=== PATIENT | female | born 1990 | race Asian ===

== ENCOUNTER → 2018-02-10 09:20 | Outpatient (CLI) | payer OTHER, SELFPAY ==
[2018-02-10 10:46] LABS: Anion Gap 8 (5-15); BUN 12 mg/dL (7-18); BUN/Creat Ratio 19.2 RATIO (10-20); Chloride 106 mmol/L (98-107); Cholesterol 171 mg/dL (200); Creatinine, Serum 0.63 mg/dL (0.55-1.02); EST Glomerular Filtration Rate 120 mL/min (>60); Est Glom Filt Rate - Afr Amer 145 mL/min (>60); Glucose 85 mg/dL (74-106); High Density Lipoprotein 59 mg/dL; Sodium Level 141 mmol/L (136-145); Thyroid Stim Hormone (TSH) 1.48 uIU/mL (0.358-3.74); Triglycerides 114 mg/dL; Very Low Density Lipoprotein 23 mg/dL (5-40)
[2018-02-10 10:53] LABS: Vitamin D,25 Hydroxy 22.6 ng/mL (29.95-100.01)
== END ==
PROVIDERS: Family Provider Family Medicine; PCP Family Medicine; Visit Provider Family Medicine
DX: Z00.00 Encounter for general adult medical examination without abnormal findings (principal)
CPT/HCPCS: 36415; 80048; 80061; 82306; 84443

== ENCOUNTER 2019-02-01 05:55 | Inpatient (IN) | payer OTHER, SELFPAY ==
[2019-02-01] VITALS (8 sets, daily range): BP systolic 117–132; BP diastolic 65–79; PULSE 117–125; RESP 19–21; TEMP 36.1–37.4; O2SAT 96–99; BMI 31.5
--- NOTE | 2019-02-01 | PLAC_PTH ---
PATIENT: ALEXIA ORTIZ LOC: [facility] U#:[id number] AGE/SX: 28/F ROOM: [facility] RE02/01/[address]: Dr. Aida Crane, MDDOB: 1990 BED: 1 DIS: 02/04/2019 SPEC #: [id number] RECD: 02/01/19 23:18 STATUS: LILLIAM MONSE #: [id number] MAME: 02/01/19 00:[address]: Cami Morris DEPT: SURGICAL PATHOLOGY RECD BY: Anat Jones ENTERED: 02/02/19 09:06 SP TYPE: PLACENTA OTHR DR: MD Dr. Ephraim Veloz MD Tissues: Placenta, NOS Procedures: Surgery Specimen Level V HEADER OPERATION: Primary section PRE-OP DIAGNOSIS: Labor and delivery TISSUE SUBMITTED: Placenta MICROSCOPIC DIAGNOSIS Sparks placenta (866 grams) Umbilical cord - trivascular with acute funisitis. Placental membranes - acute chorioamnionitis and acute deciduitis. Placental disc with organizing hemorrhage and focal chorangiosis. AM:pamela 02/07/19 MICROSCOPIC DESCRIPTION Slides are reviewed. GROSS DESCRIPTION SPECIMEN: PLACENTA / CLINICAL INFORMATION: A. Weight: 4.256 kg B. Gestational Age: 39 weeks C. Sex: Female PLACENTAL WEIGHT (POST FIXATION): 866 gm PLACENTAL DIMENSIONS: 24 x 19 x 4 cm PLACENTAL SHAPE: Usual ovoid PLACENTAL WEIGHT FOR GESTATIONAL AGE: Over 10-99th percentile MEMBRANES - Present A. Insertion: Marginal B. Site of rupture from edge: 6 cm from edge of placental disc C. Color of membrane: Valladares-pacheco D. Abnormalities: None UMBILICAL CORD - Present A. Color: Valladares-pacheco B. Insertion: Marginal C. Length: 43 cm D. Diameter: 1.5 cm E. Number of vessels: Three F. Abnormalities: None PLACENTAL DISC - Present A. Color of surface: Valladares-pacheco B. surface abnormalities: None C. Maternal cotyledons: Intact with minimal tears D. Attached retro placental clot: No clot E. Cut surface: Dark red and spongy F. Lesions: A valladares pacheco lesion 1.5 cm in greatest dimension G. Separate clot: Absent SECTIONS SUBMITTED: 1. Membrane roll 2. Cord, maternal end 3. Cord, end 4. Placental disc, and maternal surfaces 5. Placental disc, and maternal surfaces 6. Placental disc, and maternal surfaces and lesion SJ:pamela 02/05/19 TC: 2 CPT: 55790
[2019-02-01] MEDS: Lactated Ringers 1,000 ML 50 ML IV ×4 (06:45→17:36)
[2019-02-01] MEDS: Oxytocin 30 units/NS 500 ml 30 UNITS/500 ML IV.SOLN IV (07:35)
[2019-02-01 07:48] LABS: Absolute Lymphocyte Count 1.34 X10^3/uL (0.83-4.51); Absolute Neutrophil Count 6.3 X10^3/uL (2.0-7.7); Basophil# 0.02 X10^3/uL; Basophil% 0.2 % (0-1); Eosinophil# 0.14 X10^3/uL; Eosinophils% 1.6 % (0-5); Hematocrit 37.6 % (37-47); Hemoglobin 12.8 g/dL (12.0-15.0); Lymphocyte # 1.34 X10^3/ul (4.0); Lymphocyte % 15.7 % (19-41); Mean Platelet Vol. 11.7 fl (6.2-12.0); Monocyte# 0.65 X10^3/uL; Monocyte% 7.6 % (0-10); NRBC Flagged by Analyzer 0 % (0-5); Neutrophil # 6.33 X10^3/uL (2.7-7.7); Neutrophil % 74.4 % (47-70); Platelet Count 178 K/mm3 (150-450); RBC Distribution Width SD 47.7 fl (35.1-43.9); White Blood Count 8.5 K/mm3 (4.4-11.0)
--- NOTE | 2019-02-01 08:06 | PCM.HP.OB ---
- Problem List (1) Premature rupture of membranes Status: Acute (2) Congenital anomaly of upper limb Status: Acute (3) Anemia affecting Status: Acute History Date of Admission: 02/01/19 Final LEE: 02/02/19 Final LEE Source: LMP Gestational age: 39 Weeks and 6 Days History of this : This is a 28 year-old, G [1], P [000], at 39w5d of gestational age. Presented to L&D with complaint of PROM at 430am. No contractions prior to ROM. No vaginal bleeding. Allergies No Known Allergies Allergy (Verified 02/01/19 07:07) Home Medications: Home Medications Ferrous Sulfate [Iron] 325 mg PO BID 02/01/19 Emily 500 mg PO DAILY 02/01/19 L.acidoph,Paracasei, B.lactis [Probiotic] 1 ea PO DAILY 02/01/19 Metronidazole 500 mg VAGINAL BID 02/01/19 Gummies 1 PO DAILY 02/01/19 Smoking Status: Never smoker Alcohol: None Heart Tracin, moderate variability, accels, no decels TOCO: every 2-3 minutes, mild, lasting 60 seconds. Pitocin at 2 mu's History Past Pregnancies: Past Pregnancies Delivery Date Name GA/Weeks Outcome Route Weight Infant Gender Labor Length Anesthesia Delivery Location Provider FOB Labs: 1hr GCT elevated, 3 hr GTT normal GBS negative RPR negative Rubella Immune HBsAG negative HIV negative O positive CF negative Urine tox screen negative GC/CT negative Expected Infant Delivery Method: Spontaneous Vaginal Review of Systems Constitutional: Denies: Chills, Fever, Weight Change HEENT: Denies: Head Aches, Sinus Congestion, Sinus Drainage Physical Exam General: Alert, Oriented x3, No apparent distress HEENT: Atraumatic, Normocephalic Cardiovascular: Regular rate, Regular Rhythm, No murmurs Lungs: Clear to auscultation, Normal air movement, No rhonchi, No wheeze Abdomen: Gravid Extremities:: No edema Neurological: Deep Tendon Reflexes 2+/4 and Symmetrical. Negative for: Clonus J[employer] FR[employer] END WEB DEVELOPER: Normal external genitalia Estimated gestational size: Appropriate for gestational size Presentation: Cephalic Assessment/Plan All Active Problems Premature rupture of membranes (Acute) Congenital anomaly of upper limb (Acute) Anemia affecting (Acute) This is a 28 year-old, G [1], P [0], at 39w5d gestational age for premature rupture of membranes Category 1 FHT P: 1) Admit to L&D Routine labs 2) Pitocin for augmentation 3) Continuous monitoring 4) Planning unmedicated . May have nitrous, IV Nubain, or epidural upon request 5) notified of admission and patient status
--- NOTE | 2019-02-01 13:18 | PCM.PN.OB ---
Patient Problems: Active and Suspected Problems Premature rupture of membranes (Acute) Congenital anomaly of upper limb (Acute) Anemia affecting (Acute) Subjective: Breathing through contractions. at bedside. Asking for epidural. Objective: FHT 130, no decels, category 1 IA Contractions every 2-3minutes strong - Physical Exam Weight: 172 lb 6.424 oz Body Mass Index (BMI) 31.5 Laboratory Tests Past 24 Hrs 02/01/19 02/01/19 06:45 06:45 WBC 8.5 RBC 4.00 L Hgb 12.8 Hct 37.6 MCV 94.0 MCH 32.0 MCHC 34.0 RDW Std Deviation 47.7 H RDW Coeff of Todd 14.0 Plt Count 178 MPV 11.7 Immature Gran % (Auto) 0.500 Neut % (Auto) 74.4 H Lymph % (Auto) 15.7 L [place] % (Auto) 7.6 Eos % (Auto) 1.6 Baso % (Auto) 0.2 Absolute Neuts (auto) 6.3 Absolute Lymphs (auto) 1.34 Absolute Nucleated RBC 0.00 Nucleated RBC % 0 Blood Type O POSITIVE Antibody Screen NEGATIVE Medical Necessity - Tobacco Use Smoking Status: Never smoker Assessment/Plan All Active Problems Premature rupture of membranes (Acute) Congenital anomaly of upper limb (Acute) Anemia affecting (Acute) A:Active labor Category 1 FHT P: 1) Requesting epidural 2) OP position, positional changes
[2019-02-01] MEDS: fentaNYL-bupivacaine (epidural) 100 ML BAG EPIDURAL ×2 (14:17→18:09)
[2019-02-01] MEDS: Acetaminophen 325 MG Tablet PO ×2 (16:05→18:30)
--- NOTE | 2019-02-01 17:58 | PCM.PN.OB ---
Patient Problems: Active and Suspected Problems Premature rupture of membranes (Acute) Congenital anomaly of upper limb (Acute) Anemia affecting (Acute) Maternal fever during labor (Acute) Objective: FHT 170, minimal variability, no accels, no decels, Category 1 TOCO: every 2-3 minutes, strong Cervix 8cm/80%/-1 - Physical Exam Weight: 172 lb 6.424 oz Body Mass Index (BMI) 31.5 Laboratory Tests Past 24 Hrs 02/01/19 02/01/19 06:45 06:45 WBC 8.5 RBC 4.00 L Hgb 12.8 Hct 37.6 MCV 94.0 MCH 32.0 MCHC 34.0 RDW Std Deviation 47.7 H RDW Coeff of Todd 14.0 Plt Count 178 MPV 11.7 Immature Gran % (Auto) 0.500 Neut % (Auto) 74.4 H Lymph % (Auto) 15.7 L [place] % (Auto) 7.6 Eos % (Auto) 1.6 Baso % (Auto) 0.2 Absolute Neuts (auto) 6.3 Absolute Lymphs (auto) 1.34 Absolute Nucleated RBC 0.00 Nucleated RBC % 0 Blood Type O POSITIVE Antibody Screen NEGATIVE Medical Necessity - Tobacco Use Smoking Status: Never smoker Assessment/Plan All Active Problems Premature rupture of membranes (Acute) Congenital anomaly of upper limb (Acute) Anemia affecting (Acute) Maternal fever during labor (Acute) A:Active labor, progressing Category 2 FHT Suspected Triple I P: 1) Cervical progression, continue with expectant management 2) Ampicillin 2 grams IV q6h and Gentamicin 5mg/kg pharmacy to dose IV once. 3) Tylenol for maternal fever 4) notified about patient status.
--- NOTE | 2019-02-01 18:53 | PN.OBGYN_ITS ---
Patient Problems: Active and Suspected Problems Premature rupture of membranes (Acute) Congenital anomaly of upper limb (Acute) Anemia affecting (Acute) Maternal fever during labor (Acute) Subjective: Resting on right side in bed with peanut ball. at bedside. Objective: FHT 170, minimal variability, no accels, no decels, Category 2 TOCO: every 2-3 minutes, strong Cervix 9cm/90%/0 AR[place]IO - Physical Exam Weight: 172 lb 6.424 oz Body Mass Index (BMI) 31.5 Laboratory Tests Past 24 Hrs 02/01/19 02/01/19 06:45 06:45 WBC 8.5 RBC 4.00 L Hgb 12.8 Hct 37.6 MCV 94.0 MCH 32.0 MCHC 34.0 RDW Std Deviation 47.7 H RDW Coeff of Todd 14.0 Plt Count 178 MPV 11.7 Immature Gran % (Auto) 0.500 Neut % (Auto) 74.4 H Lymph % (Auto) 15.7 L [place] % (Auto) 7.6 Eos % (Auto) 1.6 Baso % (Auto) 0.2 Absolute Neuts (auto) 6.3 Absolute Lymphs (auto) 1.34 Absolute Nucleated RBC 0.00 Nucleated RBC % 0 Blood Type O POSITIVE Antibody Screen NEGATIVE Medical Necessity - Tobacco Use Smoking Status: Never smoker Assessment/Plan All Active Problems Premature rupture of membranes (Acute) Congenital anomaly of upper limb (Acute) Anemia affecting (Acute) Maternal fever during labor (Acute) A:Active labor progressing Category 2 FHT Suspected Triple I P: 1) Continue with current labor management. Reviewed with patient stable at this time and cervical progression, to continue with labor. 2) Antibiotics for suspected triple I. 3) present and observed patient and tracing. Agrees with continued plan.
--- NOTE | 2019-02-01 20:18 | PN.OBGYN_ITS ---
Patient Problems: Active and Suspected Problems Maternal fever during labor (Acute) Premature rupture of membranes (Acute) Congenital anomaly of upper limb (Acute) Anemia affecting (Acute) Subjective: Laying on left side in bed. at bedside. Objective: FHR 165, minimal variability, no accels, early decelerations, Category 2 TOCO: every 2 minutes, strong Cervix 8-9cm/90%/0. - Physical Exam Weight: 172 lb 6.424 oz Body Mass Index (BMI) 31.5 Intake and Output for Last 24 Hours 01/30/19 01/31/19 02/01/19 23:59 23:59 23:59 Intake Total 2600 / 2600 Output Total 550 / 550 Balance 2049 / 2049 Laboratory Tests Past 24 Hrs 02/01/19 02/01/19 06:45 06:45 WBC 8.5 RBC 4.00 L Hgb 12.8 Hct 37.6 MCV 94.0 MCH 32.0 MCHC 34.0 RDW Std Deviation 47.7 H RDW Coeff of Todd 14.0 Plt Count 178 MPV 11.7 Immature Gran % (Auto) 0.500 Neut % (Auto) 74.4 H Lymph % (Auto) 15.7 L [place] % (Auto) 7.6 Eos % (Auto) 1.6 Baso % (Auto) 0.2 Absolute Neuts (auto) 6.3 Absolute Lymphs (auto) 1.34 Absolute Nucleated RBC 0.00 Nucleated RBC % 0 Blood Type O POSITIVE Antibody Screen NEGATIVE Medical Necessity - Tobacco Use Smoking Status: Never smoker Assessment/Plan All Active Problems Maternal fever during labor (Acute) Premature rupture of membranes (Acute) Congenital anomaly of upper limb (Acute) Anemia affecting (Acute) A:Failure to progress Suspected Triple I Maternal Fever Category 2 FHT P: 1) Discussed with patient cervical exam and 8-9cm and no further progression. Maternal fever present and tachycardia with no accelerations. Discussed remote from delivery and recommendation for section. Reviewed r/b/a of continued labor. Patient and agree with plan for section. notified of patient status and coming to hospital. 2) Clindamycin 900mg IVPB. Ampicillin at 1744 and Gentamicin given at 1830. 3) OR team called for section
[2019-02-01] MEDS: CHLORHEXIDINE GLUC 2% CLOTH 1 EACH TOWELETTE TOPICAL (20:25)
[2019-02-01] MEDS: Sodium Citrate/Citric Acid 30 ML UDC PO (20:28)
[2019-02-01] MEDS: Ondansetron 4 MG/2 ML Vial IV (20:50)
[2019-02-01] MEDS: Oxytocin 30 units/NS 500 ml 30 UNITS/500 ML IV.SOLN 167 UNITS IV (21:04)
[2019-02-01] MEDS: Methylergonovine 0.2 MG/ML Ampul IM (21:07)
[2019-02-01] MEDS: Carboprost Tromethamine 250 MCG/ML Ampul IM (21:14)
[2019-02-01] MEDS: Ketorolac 30 MG/ML Syringe IV (21:31)
--- NOTE | 2019-02-01 21:41 | OP.PCM_ITS ---
Delivery Classification: NATE Final LEE: 02/02/19 Final LEE Source: US <20 weeks Gestational age: 39 Weeks and 6 Days Indications for : - - suspected triple I, maternal fever, protracted active phase of labor, thick MSF, persistent category 2 FHTS despite rescusictative measures remote from delivery, mild atony without hemorrhage Description of Procedure: The patient progressed to 5 cm normally, and she had a very protracted course between 6 and 8 cm. She then changed to 9 cm. However, she had a persistent fever and persistent category 2 heart tracing despite resuscitative julianna sures. She remained at 9 cm for over an hour, and with the persistent category 2 heart tracing and the protracted active phase of labor, and the maternal fever, decision was made to proceed with section. Patient and her 's questions were answered and they desire to proceed. The patient was taken to the operating room. She was prepped and draped in the dorsal supine position with a leftward tilt. A Pfannenstiel skin incision was made approximately 2 cm above the symphysis pubis and carried through to underlying layer fascia with the scalpel. The fascia was incised incised in the midline and extended laterally with the Ji scissors. The fascia was dissected off the rectus muscles with blunt and sharp dissection. The rectus muscles were in the midline and the peritoneum was entered bluntly. The peritoneal incision was stretched and the bladder blade was placed. The uterine incision was made in a low transverse fashion with the scalpel and extended superiorly and inferiorly with blunt dissection. After making the hysterotomy incision, large amounts of thick meconium-stained fluid were noted. Care was taken to elevate the head without flexing the neck. The head was brought to the incision in the flexed position and delivered without difficulty once it was unengaged from the pelvis. The remainder of the was delivered with gentle traction and fundal pressure in the standard fashion. The mouth and nares were bulb suctioned. The cord was clamped and cut as the was stimulated. Cord clamping was delayed. The was handed off to the waiting nursing staff. The placenta was delivered with fundal massage and gentle traction in the standard fashion. There was some moderate atony, that did not respond initially to IV Pitocin and fundal massage. The uterus was exteriorized and cleared of all clots and debris. The uterine incision was closed with #1 Vicryl in a running locked fashion. A second layer of the same suture was used in an imbricating fashion. The patient was given a dose of IM Methergine. Fundal massage was continued as I closed the uterus and there was still some atony. There is an extension down the right side of the cervix that was oversewn with an 0 Vicryl [id number] suture. Some sinuses in the midline of the incision were oversewn with a vertical mattress suture. The incision was examined and was found to be hemostatic. There is still some mild atony and a dose of Hemabate was given intramuscular directly into the uterine fundus. Because of the extension, the posterior aspect of the uterus was examined and there were no hematomas or defects noted. The uterus was placed back into the peritoneal cavity. There was some mild oozing along the peritoneal edges that was Bovie cauterized. Some fibrillar was placed in the corners of the uterine incision and some Paulie over it. Hemostasis was then noted.The rectus muscles were examined and any bleeding was Bovie cauterized. The parietal peritoneum and rectus muscles were closed en bloc with an 0 Vicryl running suture. The surgical teams outer gloves were then changed. The rectus fascia was examined and any bleeding was Bovie cauterized and the rectus fascia was closed with 1 Vicryl suture in a running standard fashion. The subcutaneous tissue was examining and any bleeding was Bovie cauterized. The subcutaneous tissue was reapproximated with 3-0 Vicryl suture. The skin was closed in a subcuticular fashion by the TELEPHONE INSTALLER with me present in the labor and delivery suite. I performed the remainder of the procedure with assistance. Because of the maternal fever, I will continue the antibiotics for at least 24 hours postoperatively. If at that time her white blood cell count is trending down and she is afebrile, will discontinue the antibiotics. All sponge, lap, and needle counts were correct. The patient was taken to her room for recovery in a stable condition. Amniotic Membrane Rupture Type: Spontaneous Amniotic Fluid Description: Clear, Thick meconium Placenta Disposition: Sent to Pathology Drain: Todd to straight drain Cord Entanglement: None Cord Vessel Description: 3 Vessels Esitmated Blood Loss (ml): 1000 Infant Gender: Female (1 minute): 8 (5 minute): 9 Delayed cord clamping: Yes Pre-op Antibiotic Given: - - amp/gent/clinda Complications: None - Admit VTE Documentation VTE Present on Admission: No VTE Mechan Device Prophylaxis: SCD's VTE Pharm Prophylaxis ordered?: Yes
[2019-02-01] MEDS: Lactated Ringers 1,000 ML 100 ML IV (22:00)
[2019-02-01] MEDS: Cefazolin 1 GM/50 ML BAG IV (23:15)
[2019-02-02] VITALS (20 sets, daily range): BP systolic 98–132; BP diastolic 51–79; PULSE 98–126; RESP 16–21; TEMP 36.2–37.3; O2SAT 96–99
[2019-02-02 01:10] LABS: Pathology Specimen OB SEE PATHOLOGY REPORT
[2019-02-02] MEDS: metroNIDAZOLE 500 MG/100 ML BAG 100 MG IV ×3 (02:24→18:23)
[2019-02-02] MEDS: Ketorolac 30 MG/ML Syringe IV ×4 (03:16→21:01)
[2019-02-02] MEDS: 0.9% Saline Lock 10 ML Syringe IV ×3 (03:17→18:29)
[2019-02-02] MEDS: Lactated Ringers 1,000 ML 100 ML IV ×2 (05:03→12:24)
[2019-02-02 06:41] LABS: Hematocrit 29.2 % (37-47); Mean Corp Hgb Conc 34.2 g/dL (32-36); Mean Corpuscular Hgb 32.5 pg (27.0-32.0); Mean Corpuscular Volume 94.8 fL (81-99); Mean Platelet Vol. 10.6 fl (6.2-12.0); Platelet Count 141 K/mm3 (150-450); RBC Distribution Width CV 14.1 % (11.6-14.6); Red Blood Count 3.08 M/mm3 (4.2-5.4); White Blood Count 19.3 K/mm3 (4.4-11.0)
--- NOTE | 2019-02-02 07:48 | PCM.PN.OB ---
Patient Problems: Active and Suspected Problems Maternal fever during labor (Acute) Premature rupture of membranes (Acute) Congenital anomaly of upper limb (Acute) Anemia affecting (Acute) Subjective: Pain controlled. - Physical Exam General: Alert, Oriented x3 Abdomen: Soft, Non Tender, Non-Distended - ff mid & below umb; bandage - c/d/i Extremities: No Calf Tenderness Vital Signs Temp Pulse Resp BP Pulse Ox 97.8 F 111 H 18 100/52 L 97 02/02/19 06:15 02/02/19 07:15 02/02/19 07:15 02/02/19 06:15 02/02/19 07:15 Oxygen Delivery Method Room Air Weight: 172 lb 6.424 oz Body Mass Index (BMI) 31.5 Intake and Output for Last 24 Hours 01/31/19 02/01/19 02/02/19 23:59 23:59 23:59 Intake Total 5100 / 5100 3216 / 3216 Output Total 1150 / 1150 275 / 275 Balance 3950 / 3950 2941 / 2941 Laboratory Tests Past 24 Hrs 02/01/19 02/01/19 02/02/19 06:45 06:45 06:25 WBC 8.5 19.3 H RBC 4.00 L 3.08 L Hgb 12.8 10.0 L Hct 37.6 29.2 L MCV 94.0 94.8 MCH 32.0 32.5 H MCHC 34.0 34.2 RDW Std Deviation 47.7 H 49.0 H RDW Coeff of Todd 14.0 14.1 Plt Count 178 141 L MPV 11.7 10.6 Immature Gran % (Auto) 0.500 Neut % (Auto) 74.4 H Lymph % (Auto) 15.7 L [place] % (Auto) 7.6 Eos % (Auto) 1.6 Baso % (Auto) 0.2 Absolute Neuts (auto) 6.3 Absolute Lymphs (auto) 1.34 Absolute Nucleated RBC 0.00 Nucleated RBC % 0 Blood Type O POSITIVE Antibody Screen NEGATIVE Medical Necessity - Tobacco Use Smoking Status: Never smoker Assessment/Plan All Active Problems Maternal fever during labor (Acute) Premature rupture of membranes (Acute) Congenital anomaly of upper limb (Acute) Anemia affecting (Acute) POD#1 KESIHA - faby, will monitor UOP as has been low. S/p IV bolus & now patient with increased PO intake. GI - ADAT. ID - AF, continue antibiotics x 24 hours post-op. Heme - HDS.
[2019-02-02] MEDS: Acetaminophen 500 MG Tablet 1000 MG PO ×2 (07:56→23:31)
[2019-02-02] MEDS: Cefazolin 1 GM/50 ML BAG IV ×3 (07:57→21:04)
[2019-02-02] MEDS: Senna/Docusate Sodium 1 Tablet PO ×2 (10:25→21:06)
[2019-02-02] MEDS: Enoxaparin 40 MG/0.4 ML Syringe SC (21:39)
[2019-02-03 03:05] VITALS: BP 97/46; PULSE 89; RESP 16; TEMP 37
[2019-02-03 05:53] LABS: Absolute Lymphocyte Count 1.08 X10^3/uL (0.83-4.51); Absolute Neutrophil Count 17.8 X10^3/uL (2.0-7.7); Basophil# 0.03 X10^3/uL; Basophil% 0.1 % (0-1); Eosinophil# 0.06 X10^3/uL; Eosinophils% 0.3 % (0-5); Hematocrit 26.1 % (37-47); Hemoglobin 8.9 g/dL (12.0-15.0); Lymphocyte # 1.08 X10^3/ul (4.0); Lymphocyte % 5.4 % (19-41); Mean Corp Hgb Conc 34.1 g/dL (32-36); Mean Corpuscular Hgb 32.6 pg (27.0-32.0); Mean Corpuscular Volume 95.6 fL (81-99); Mean Platelet Vol. 10.1 fl (6.2-12.0); Monocyte# 0.71 X10^3/uL; Monocyte% 3.5 % (0-10); NRBC Flagged by Analyzer 0 % (0-5); Neutrophil # 17.83 X10^3/uL (2.7-7.7); POSITIVE MORPHOLOGY YES; Platelet Count 151 K/mm3 (150-450); RBC Distribution Width CV 14.2 % (11.6-14.6); RBC Distribution Width SD 49.1 fl (35.1-43.9); Red Blood Count 2.73 M/mm3 (4.2-5.4); White Blood Count 20.1 K/mm3 (4.4-11.0)
[2019-02-03 05:55] LABS: Differential Indicated SCAN CRITERIA MET
[2019-02-03 08:09] VITALS: BP 100/62; PULSE 80; RESP 16; TEMP 36.7; O2SAT 97
--- NOTE | 2019-02-03 09:02 | PN.OBGYN_ITS ---
Patient Problems: Active and Suspected Problems Maternal fever during labor (Acute) Premature rupture of membranes (Acute) Congenital anomaly of upper limb (Acute) Anemia affecting (Acute) Subjective: Pain controlled - Physical Exam General: Alert, Oriented x3 Abdomen: Soft, Non Tender, Non-Distended - ff mid & below umb; inc - bandage c/d/i Extremities: No Calf Tenderness Vital Signs Temp Pulse Resp BP Pulse Ox 98.0 F 80 16 100/62 97 02/03/19 08:09 02/03/19 08:09 02/03/19 08:09 02/03/19 08:09 02/03/19 08:09 Oxygen Delivery Method Room Air Weight: 172 lb 6.424 oz Body Mass Index (BMI) 31.5 Intake and Output for Last 24 Hours 02/01/19 02/02/19 02/03/19 23:59 23:59 23:59 Intake Total 5100 / 5100 5279 / 5279 Output Total 1150 / 1150 1675 / 1675 400 / 400 Balance 3950 / 3950 3604 / 3604 -400 / -400 Laboratory Tests Past 24 Hrs 02/03/19 05:40 WBC 20.1 H RBC 2.73 L Hgb 8.9 L Hct 26.1 L MCV 95.6 MCH 32.6 H MCHC 34.1 RDW Std Deviation 49.1 H RDW Coeff of Todd 14.2 Plt Count 151 MPV 10.1 Immature Gran % (Auto) 1.700 H Neut % (Auto) 89.0 H Lymph % (Auto) 5.4 L [place] % (Auto) 3.5 Eos % (Auto) 0.3 Baso % (Auto) 0.1 Absolute Neuts (auto) 17.8 H Absolute Lymphs (auto) 1.08 Absolute Nucleated RBC 0.00 Nucleated RBC % 0 Differential Comment Medical Necessity - Tobacco Use Smoking Status: Never smoker Assessment/Plan All Active Problems Maternal fever during labor (Acute) Premature rupture of membranes (Acute) Congenital anomaly of upper limb (Acute) Anemia affecting (Acute) POD#2 ID - AF s/p antibiotics. WBC 20 which is about stable from 19 yesterday. No signs infection but will monitor. Anemia - acute blood loss anemia. Continue iron. Routine care. Encouraged .
[2019-02-03] MEDS: Ferrous Sulfate 325 MG Tablet PO (12:10)
[2019-02-03 13:53] VITALS: BP 112/68; PULSE 104; RESP 16; TEMP 37; O2SAT 97
[2019-02-03] MEDS: Naproxen 250 MG Tablet PO ×2 (14:24→23:01)
[2019-02-03] MEDS: Acetaminophen 500 MG Tablet 1000 MG PO (17:16)
[2019-02-03 20:20] VITALS: BP 114/70; PULSE 102; RESP 16; TEMP 37.2; O2SAT 97
[2019-02-03] MEDS: Enoxaparin 40 MG/0.4 ML Syringe SC (23:03)
[2019-02-04] MEDS: Acetaminophen 500 MG Tablet 1000 MG PO (01:50)
[2019-02-04 01:51] VITALS: BP 116/72; PULSE 86; RESP 15; TEMP 36.8; O2SAT 97
[2019-02-04 07:45] VITALS: BP 117/75; PULSE 80; RESP 16; TEMP 37.6
--- NOTE | 2019-02-04 08:42 | PCM.PN.OB ---
Patient Problems: Active and Suspected Problems Maternal fever during labor (Acute) Premature rupture of membranes (Acute) Congenital anomaly of upper limb (Acute) Anemia affecting (Acute) Subjective: Denies complaints - Physical Exam General: Alert, Oriented x3 Abdomen: Soft, Non Tender, Non-Distended - ff mid & below umb; inc - bandage c/d/i Extremities: No Calf Tenderness Vital Signs Temp Pulse Resp BP Pulse Ox 98.2 F 86 15 116/72 97 02/04/19 01:51 02/04/19 01:51 02/04/19 01:51 02/04/19 01:51 02/04/19 01:51 Oxygen Delivery Method Room Air Weight: 172 lb 6.424 oz Body Mass Index (BMI) 31.5 Intake and Output for Last 24 Hours 02/02/19 02/03/19 02/04/19 23:59 23:59 23:59 Intake Total 5279 / 5279 Output Total 1675 / 1675 400 / 400 Balance 3604 / 3604 -400 / -400 Medical Necessity - Tobacco Use Smoking Status: Never smoker Assessment/Plan All Active Problems Maternal fever during labor (Acute) Premature rupture of membranes (Acute) Congenital anomaly of upper limb (Acute) Anemia affecting (Acute) POD#3 D/c home
--- NOTE | 2019-02-04 08:43 | PCM.DC.SUM ---
Discharge Date and Diagnosis - Problem List Patient Problems: Active and Suspected Problems Maternal fever during labor (Acute) Premature rupture of membranes (Acute) Congenital anomaly of upper limb (Acute) Anemia affecting (Acute) Date of Admission: 02/01/19 Date of Discharge: 02/04/19 - Primary Discharge Diagnosis Active and Suspected Problems Maternal fever during labor (Acute) Premature rupture of membranes (Acute) Congenital anomaly of upper limb (Acute) Anemia affecting (Acute) Hospital Course and Treatment Summary of Care Provided: This is a 28 year-old, G [1], P [000], at 39w5d of gestational age. Presented to L&D with complaint of PROM. After augmentation with pitocin she proceeded to have a section - please see operative note for details. Hospital course: Heme - on iron for acute blood loss anemia. ID - s/p antibiotics for maternal fever in labor. consult during admission. Discharge home with prescriptions & f/u instructions. Patient Problems: Active and Suspected Problems Maternal fever during labor (Acute) Premature rupture of membranes (Acute) Congenital anomaly of upper limb (Acute) Anemia affecting (Acute) - Physical Exam Vital Signs Temp Pulse Resp BP Pulse Ox 98.2 F 86 15 116/72 97 02/04/19 01:51 02/04/19 01:51 02/04/19 01:51 02/04/19 01:51 02/04/19 01:51 Oxygen Delivery Method Room Air Weight: 172 lb 6.424 oz Body Mass Index (BMI) 31.5 Intake and Output for Last 24 Hours 02/02/19 02/03/19 02/04/19 23:59 23:59 23:59 Intake Total 5279 / 5279 Output Total 1675 / 1675 400 / 400 Balance 3604 / 3604 -400 / -400 Home Medications: Medications to take at Discharge Ferrous Sulfate [Iron] 325 mg PO BID 02/01/19 Emily 500 mg PO DAILY 02/01/19 L.acidoph,Paracasei, B.lactis [Probiotic] 1 ea PO DAILY 02/01/19 Metronidazole 500 mg VAGINAL BID 02/01/19 Gummies 1 PO DAILY 02/01/19 Acetaminophen [Tylenol] 1,000 mg PO Q8H PRN PRN tablet 02/04/19 Docusate Sodium [Colace] 100 mg PO DAILY #30 cap 02/04/19 Ferrous Sulfate 325 mg PO DAILY@1200 #30 tab 02/04/19 Naproxen [Naprosyn] 250 - 500 mg PO Q8H PRN PRN tablet 02/04/19 Oxycodone [Oxyir] 5 mg PO Q6H PRN PRN 2 Days #5 tab 02/04/19 Following Prescrptions Were Given to Patient: Docusate Sodium [Colace] 100 mg PO DAILY #30 cap Prescription Printed Ferrous Sulfate 325 mg PO DAILY@1200 #30 tab Prescription Printed Oxycodone [Oxyir] 5 mg PO Q6H PRN PRN 2 Days #5 tab PRN Reason: Mod-Severe Pain (-04/19) Prescription Printed Primary Care Physician: Ephraim Chowdary MD [Primary Care Provider] - Medical Necessity - Tobacco Use Smoking Status: Never smoker Meaningful Use Info Meaningful Use Diagnoses (Choose all that apply): None applicable
--- NOTE | 2019-02-04 08:48 | DCINST_ITS ---
Discharge Diet: No Restrictions Discharge Activity: May not drive while taking narcotic pain medications., May Shower May resume sexual activity in: 6 weeks Weight Bearing Status: Weight bearing as tolerated Call your doctor if your incision/area has: Continuous Slow Oozing, Sudden Increased Bleeding, Increased Pain/ Swelling, Increased Redness, Foul Smelling Discharge, Swelling at the incision site Cleanse incision/area with: Soap & Water Additional Instructions: If you experience any of the following, contact your healthcare provider. * Bleeding that soaks a pad every hour for 2 hours * Fever 100.4 or higher * Unrelieved incision or abdominal pain * Swelling, redness, discharge or bleeding from your incision or episiotomy site * Your incision begins to separate * Problems urinating (including inability to urinate or burning while urinating). * Visual changes * Severe headache * Flu-like symptoms * Pain or redness in one of both of your breasts * Pain, warmth, tenderness or swelling in your legs, especially the calf area * Frequent nausea and vomiting * Symptoms of depression or anxiety If you experience any of the following, call 911 or go to the nearest Emergency Room. * Chest pain * Problems breathing * Seizure activity * Partial or complete paralysis of a body part, slurred speech, weakness or drooping of the face, or a sudden inability to walk or hold your balance Allergies/Adverse Reactions: Allergies No Known Allergies Allergy (Verified 02/01/19 07:07) Medications to take at Discharge Ferrous Sulfate [Iron] 325 mg PO BID 02/01/19 Emily 500 mg PO DAILY 02/01/19 L.acidoph,Paracasei, B.lactis [Probiotic] 1 ea PO DAILY 02/01/19 Metronidazole 500 mg VAGINAL BID 02/01/19 Gummies 1 PO DAILY 02/01/19 Acetaminophen [Tylenol] 1,000 mg PO Q8H PRN PRN tablet 02/04/19 Docusate Sodium [Colace] 100 mg PO DAILY #30 cap 02/04/19 Ferrous Sulfate 325 mg PO DAILY@1200 #30 tab 02/04/19 Naproxen [Naprosyn] 250 - 500 mg PO Q8H PRN PRN tablet 02/04/19 Oxycodone [Oxyir] 5 mg PO Q6H PRN PRN 2 Days #5 tab 02/04/19 The following prescriptions were given: Docusate Sodium [Colace] 100 mg PO DAILY #30 cap Prescription Printed Ferrous Sulfate 325 mg PO DAILY@1200 #30 tab Prescription Printed Oxycodone [Oxyir] 5 mg PO Q6H PRN PRN 2 Days #5 tab PRN Reason: Mod-Severe Pain (4-04/19) Prescription Printed Follow-Up: Call to make an appointment with your doctor for an incision check in 1-2 weeks. You will also need a 6 week post- follow up appointment. Test results from this visit will be discussed in further detail at your follow- up appointment, if applicable. Primary Care Physician: Ephraim Chowdary MD [Primary Care Provider] -
[2019-02-04] MEDS: Ferrous Sulfate 325 MG Tablet PO (11:44)
[2019-02-04 14:00] VITALS: BP 119/74; PULSE 77; RESP 16; TEMP 37.1
--- NOTE | 2019-02-09 15:44 | NURSING ---
Follow up call done, mother did pass clot and this was discussed and mentioned for her to call her dr especially if there is any notice of increased bleeding. Denies any other problems or concerns at this time. Has worked with which she felt was very helpful and was satisfied with her care.
== END 2019-02-04 15:00 | disposition home or self-care (01) | DRG 787 ==
PROVIDERS: Obstetrics & Gynecology; Student in an Organized Health Care Education/Training Program; Admitting Provider Obstetrics & Gynecology; Family Provider Family Medicine; PCP Family Medicine; Referring Provider Obstetrics & Gynecology; Visit Provider Obstetrics & Gynecology
DX: O75.2 Pyrexia during labor, not elsewhere classified (principal); D62 Acute posthemorrhagic anemia; O42.02 Full-term premature rupture of membranes, onset of labor within 24 hours of rupture; O99.02 Anemia complicating childbirth; D64.9 Anemia, unspecified; O76 Abnormality in fetal heart rate and rhythm complicating labor and delivery; O77.0 Labor and delivery complicated by meconium in amniotic fluid; Z3A.39 39 weeks gestation of pregnancy; Z37.0 Single live birth; O62.2 Other uterine inertia; O90.81 Anemia of the puerperium
CPT/HCPCS: 59025; 59050; 85025; 85027; 86850; 86900; 88307; 99218; J7120; A4216; G0378; J2405; J3490

== ENCOUNTER → 2019-02-05 | Outpatient (CLI) | payer OTHER, SELFPAY ==
[2019-02-01 06:16] VITALS: BMI 31.5
== END | disposition home or self-care (01) ==
LOC: TELEHEALTH 02-06 11:27
PROVIDERS: Family Provider Family Medicine; PCP Family Medicine; Referring Provider Obstetrics & Gynecology; Visit Provider Obstetrics & Gynecology
DX: O92.79 Other disorders of lactation (principal)
CPT/HCPCS: 96152

== ENCOUNTER → 2019-04-15 13:58 | Outpatient (CLI) | payer OTHER, SELFPAY ==
[2019-02-01 06:16] VITALS: BMI 31.5
== END ==
PROVIDERS: Family Provider Family Medicine; PCP Family Medicine; Referring Provider Obstetrics & Gynecology; Visit Provider Obstetrics & Gynecology
DX: Z39.1 Encounter for care and examination of lactating mother (principal)
CPT/HCPCS: 96152

== ENCOUNTER → 2020-01-06 14:56 | Outpatient (CLI) | payer OTHER, SELFPAY ==
[2019-02-01 06:16] VITALS: BMI 31.5
== END ==
PROVIDERS: PCP Family Medicine; Referring Provider Obstetrics & Gynecology; Visit Provider Obstetrics & Gynecology
DX: R63.3 Feeding difficulties (principal)
CPT/HCPCS: 96158

== ENCOUNTER 2020-09-20 07:52 | Inpatient (IN) | payer OTHER, SELFPAY ==
[2019-02-01 06:16] VITALS: BMI 31.5
[2020-09-20] VITALS (40 sets, daily range): BP systolic 90–142; BP diastolic 46–81; PULSE 85–155; RESP 16; TEMP 36.4–37.5; O2SAT 82–99; BMI 31.3
[2020-09-20] MEDS: Lactated Ringers 500 ML 999 ML IV (08:00)
[2020-09-20 08:11] LABS: Absolute Lymphocyte Count 1.12 X10^3/uL (0.83-4.51); Absolute Neutrophil Count 12.6 X10^3/uL (2.0-7.7); Basophil# 0.03 X10^3/uL; Basophil% 0.2 % (0-1); Eosinophil# 0.21 X10^3/uL; Eosinophils% 1.4 % (0-5); Hematocrit 38.9 % (37-47); Hemoglobin 12.9 g/dL (12.0-15.0); Lymphocyte # 1.12 X10^3/ul (4.0); Lymphocyte % 7.6 % (19-41); Mean Corp Hgb Conc 33.2 g/dL (32-36); Mean Corpuscular Hgb 31.1 pg (27.0-32.0); Mean Corpuscular Volume 93.7 fL (81-99); Mean Platelet Vol. 10.1 fl (6.2-12.0); Monocyte# 0.67 X10^3/uL; Monocyte% 4.6 % (0-10); NRBC Flagged by Analyzer 0 % (0-5); Neutrophil # 12.55 X10^3/uL (2.7-7.7); Neutrophil % 85.7 % (47-70); Platelet Count 209 K/mm3 (150-450); RBC Distribution Width CV 13.2 % (11.6-14.6); RBC Distribution Width SD 44.9 fl (35.1-43.9); Red Blood Count 4.15 M/mm3 (4.2-5.4); White Blood Count 14.7 K/mm3 (4.4-11.0)
[2020-09-20] MEDS: fentaNYL-bupivacaine (epidural) 100 ML BAG EPIDURAL (08:34)
[2020-09-20] MEDS: Lactated Ringers 1,000 ML 50 ML IV (09:00)
--- NOTE | 2020-09-20 09:06 | PCM.HP.OB ---
- Problem List (1) 38 weeks gestation of Status: Acute (2) Active labor at term Status: Acute (3) History of delivery Status: Acute History Date of Admission: 09/20/20 Final LEE: 10/02/20 Final LEE Source: [place] <20 weeks Gestational age: 38 Weeks and 2 Days History of this : This is a 30 year-old, G 2, P 1001, at 38 weeks gestational age who presents in active labor. Having ctx's and is 8 cm dilated. Allergies No Known Allergies Allergy (Verified 02/01/19 07:07) Home Medications: Home Medications Emily 500 mg PO DAILY 02/01/19 Gummies 1 tab PO DAILY 02/01/19 Ferrous Sulfate 325 mg PO DAILY@1200 09/20/20 Smoking Status: Never smoker Number of Fetus(es): 1 NST - FHR Rate Baby A FHR Category:: Category I History Past Pregnancies: Past Pregnancies Delivery Date Name GA/ Weeks Outcome Route Wt Infant Sex Labor Length Anesthesia Delivery Location Provider FOB Labs: See [facility] record Expected Delivery Method: Physical Exam Vitals: Vital Signs Temp Pulse BP Pulse Ox 98.8 F 99 130/68 H 98 09/20/20 08:52 09/20/20 09:04 09/20/20 09:00 09/20/20 09:04 Assessment/Plan All Active Problems 38 weeks gestation of (Acute) Active labor at term (Acute) History of delivery (Acute) Maternal fever during labor (Acute) Premature rupture of membranes (Acute) Congenital anomaly of upper limb (Acute) Anemia affecting (Acute) This is a 30 year-old, G 2, P 1, at 38 weeks gestational age who presents in active labor. - Admit for routine intrapartum care - AROM performed for clear fluid - GBS negative - Epidural for pain control - Pelvis adequate and EFW expected to be < 4500 g - Anticipate vaginal delivery
[2020-09-20] MEDS: Oxytocin 30 units/NS 500 ml 30 UNITS/500 ML IV.SOLN 334 UNITS IV (10:50)
--- NOTE | 2020-09-20 11:05 | OP.PCM_ITS ---
Problem List (1) 38 weeks gestation of Status: Acute (2) Active labor at term Status: Acute (3) History of delivery Status: Acute (4) (vaginal after ) Status: Acute Report of Operation Date of Procedure: 09/20/20 Pre-Operative Diagnosis: 38 week gestation, history prior section, active labor at term Post-Operative Diagnosis: As above, Surgery/Procedure Performed:: Description of Surgical Findings:: Viable male in right occiput anterior position. Uterus intact. Normal- appearing placenta with a three-vessel cord. Type of Anesthesia:: Epidural Special Medications: None Specimen's removed: Placenta Drains: Todd Estimated Blood Loss (mL): 200 Description of Procedure: The patient was complete and pushing. Head of infant was delivered in left occiput anterior position followed by the anterior shoulder with gentle downward traction without any force or delay. Posterior shoulder and body of were delivered without any force or delay. The infant was delivered atraumatically placed on maternal abdomen. The cord was clamped and cut after a 60 sec delay. Cord blood was obtained. The placenta was delivered with fundal massage. The placenta was noted to be normal-appearing and intact with a three-vessel cord. The uterus was explored x1 and the incision was noted to be intact. A second-degree perineal laceration was repaired with 3-0 Vicryl in usual fashion. Fundus was firm and bleeding hemostatic. Needle and sponge counts were correct. Vaginal sweep was performed. Grafts/Implants Used: None - Complications None - Admit VTE Documentation VTE Present on Admission: No VTE Pharm Prophylaxis ordered?: No Vaginal Delivery Maternal Presentation: Active Labor Amniotic Membrane Rupture Type: Artificial Amniotic Fluid Description: Clear Type of Anesthesia: Epidural Presentation: Vertex Placental Delivery Description: Expressed Cord Vessel Description: 3 Vessels Cord Entanglement: None Drain: Todd to straight drain Infant A gender: Male (1 minute): 9 (5 minute): 9 Episiotomy Description: None Laceration: 2nd degree Medications given after delivery: IV Pitocin Complications: None
--- NOTE | 2020-09-20 15:41 | NURSING ---
heart rate of 155bpm incorrect, monitor reading but pulse ox not on patient finger. HR of 114 obtained and correct.
[2020-09-20] MEDS: Ibuprofen 600 MG Tablet PO (21:55)
[2020-09-21 03:30] VITALS: BP 103/57; PULSE 84; RESP 18; TEMP 36.4
[2020-09-21 08:44] VITALS: BP 96/45; PULSE 68; RESP 18; TEMP 36.1
--- NOTE | 2020-09-21 11:26 | PCM.PN.OB ---
Patient Problems: Active and Suspected Problems 38 weeks gestation of (Acute) Active labor at term (Acute) History of delivery (Acute) (vaginal after ) (Acute) Subjective: Patient is doing well. Pain well controlled. Ambulating voiding without difficulty. Tolerating regular diet without nausea or vomiting. Lochia normal. Breast-feeding without complaints. She denies lightheadedness, dizziness, chest pain, shortness of breath, leg pain. Some perineal discomfort. Desires to go home today. - Physical Exam Vitals/I&O's: Vital Signs Temp Pulse Resp BP Pulse Ox 97 F L 68 18 96/45 L 98 09/21/20 08:44 09/21/20 08:44 09/21/20 08:44 09/21/20 08:44 09/20/20 19:34 Oxygen Delivery Method Room Air Weight: 171 lb 3.2 oz Body Mass Index (BMI) 31.3 Intake and Output for Last 24 Hours 09/19/20 09/20/20 09/22/20 23:59 23:59 00:59 Intake Total 2991.67 / 2991.67 Output Total 1200 / 1200 Balance 1791.67 / 1791.67 General: Alert, No apparent distress Abdomen: Non-Distended Extremities: No edema Skin: No rashes Neurological: Neuro grossly intact Psych/Mental Status: Normal Affect, Appropriate Microbiology Past 72 Hours 09/20/20 08:00 Mucosa - Nose SARS-CoV-2 Antigen (Rapid) - Final Current Medications Acetaminophen (Acetaminophen 500 Mg Tablet) 1,000 mg PO Q8H PRN PRN PRN Reason: Pain Score 1-3 Bisacodyl (Bisacodyl 10 Mg Suppository) 10 mg RC UD PRN PRN Reason: If no BM Dibucaine (Dibucaine 30 Gm Tube) 1 applic TOPICAL TID PRN PRN; Protocol PRN Reason: Discomfort Hydrocortisone (Hydrocortisone 2.5% Crm) 1 applic TOPICAL TID PRN PRN; Protocol PRN Reason: Discomfort Ibuprofen (Ibuprofen 600 Mg Tablet) 600 mg PO Q6H PRN PRN PRN Reason: Pain Score 1-3 Last Admin: 09/20/20 21:55 Dose: 600 mg Documented by: Methylergonovine Maleate (Methylergonovine 0.2 Mg/Ml Ampul) 0.2 mg IM X1 PRN PRN Reason: Excess bleeding/uterine atony Ondansetron HCl (Ondansetron 4 Mg/2 Ml Vial) 4 mg IV Q4H PRN PRN PRN Reason: Nausea Senna/Docusate Sodium (Senna/Docusate Sodium 1 Tablet) 1 - 2 tablet PO DAILY PRN PRN PRN Reason: Constipation Simethicone (Simethicone 80 Mg Tablet) 80 mg PO PCHS PRN PRN Reason: Indigestion/Stomach pain Sodium Chloride (0.9% Saline Lock 10 Ml Syringe) 5 - 15 ml IV UD PRN PRN Reason: SALINE FLUSH Medical Necessity - Tobacco Use Smoking Status: Never smoker Assessment/Plan All Active Problems 38 weeks gestation of (Acute) Active labor at term (Acute) History of delivery (Acute) (vaginal after ) (Acute) Maternal fever during labor (Acute) Premature rupture of membranes (Acute) Congenital anomaly of upper limb (Acute) Anemia affecting (Acute) Is day 1 from a vaginal after prior . She is doing well. Breast-feeding. Desires to go home today. Discharge instructions reviewed.
--- NOTE | 2020-09-21 11:28 | DCINST_ITS ---
Discharge Diet: No Restrictions Discharge Activity: May Shower May resume sexual activity in: 6 weeks Ice area for (Minutes): 15 Weight Bearing Status: Weight bearing as tolerated Call your doctor if you observe: Fever of 101 or Higher, Inability to urinate, Inability to have a bowel movement, Using more than one pad per hour, Shortness of breath, Dizziness, Fainting spells, Swelling in the ankles, Chest pain, Increased palpitations (irregular heartbeat), Calf discomfort, Uncontrolled pain Cleanse incision/area with: Soap & Water Additional Instructions: If you experience any of the following, contact your healthcare provider. * Bleeding that soaks a pad every hour for 2 hours * Fever 100.4 or higher * Unrelieved incision or abdominal pain * Swelling, redness, discharge or bleeding from your incision or episiotomy site * Your incision begins to separate * Problems urinating (including inability to urinate or burning while urinating). * Visual changes * Severe headache * Flu-like symptoms * Pain or redness in one of both of your breasts * Pain, warmth, tenderness or swelling in your legs, especially the calf area * Frequent nausea and vomiting * Symptoms of depression or anxiety If you experience any of the following, call 911 or go to the nearest Emergency Room. * Chest pain * Problems breathing * Seizure activity * Partial or complete paralysis of a body part, slurred speech, weakness or drooping of the face, or a sudden inability to walk or hold your balance Allergies/Adverse Reactions: Allergies No Known Allergies Allergy (Verified 02/01/19 07:07) Medications to take at Discharge Emily 500 mg PO DAILY 02/01/19 Gummies 1 tab PO DAILY 02/01/19 Ferrous Sulfate 325 mg PO DAILY@1200 09/20/20 When: 1-2 weeks if you desire. 6 weeks for a visit. Primary Care Physician: Ephraim Chowdary MD [Primary Care Provider] - Test Results: Test results from this visit will be discussed in further detail at your follow- up appointment, if applicable.
[2020-09-21 13:04] VITALS: BP 110/56; PULSE 89; RESP 16; TEMP 36.6
== END 2020-09-21 15:35 | disposition home or self-care (01) | DRG 807 ==
LOC: WP 08:11 → WPOUT 09-22 14:23
PROVIDERS: Admitting Provider Obstetrics & Gynecology; PCP Family Medicine; Referring Provider Obstetrics & Gynecology; Visit Provider Obstetrics & Gynecology
DX: O34.219 Maternal care for unspecified type scar from previous cesarean delivery (principal); Z37.0 Single live birth; Z3A.38 38 weeks gestation of pregnancy; Q74.0 Other congenital malformations of upper limb(s), including shoulder girdle; O70.1 Second degree perineal laceration during delivery
CPT/HCPCS: 59025; 59050; 85025; 86850; 86900; 86901; 87426; 99218; J7120; G0378; J3490

== ENCOUNTER → 2020-12-22 11:31 | Outpatient (CLI) | payer OTHER, SELFPAY ==
[2020-09-20 07:57] VITALS: BMI 31.3
[2020-12-28 03:06] LABS: Alternaria alternata <0.10 kU/L (Class 0); Aspergillus fumigatus <0.10 kU/L (Class 0); Bahia Grass <0.10 kU/L (Class 0); Bermuda Grass <0.10 kU/L (Class 0); Bluegrass, Kentucky <0.10 kU/L (Class 0); Cat Hair/Dander, Standard <0.10 kU/L (Class 0); Cedar, Mountain <0.10 kU/L (Class 0); Cladosporium herbarum <0.10 kU/L (Class 0); Cockroach, American <0.10 kU/L (Class 0); D farinae Mite 0.15 kU/L (Class 0/I); D pteronyssinus 0.15 kU/L (Class 0/I); Dog Epithelia <0.10 kU/L (Class 0); Elm, American White <0.10 kU/L (Class 0); Hazelnut Tree <0.10 kU/L (Class 0); Hickory, White <0.10 kU/L (Class 0); Johnson Grass <0.10 kU/L (Class 0); Maple/Box Elder <0.10 kU/L (Class 0); Mucor racemosus <0.10 kU/L (Class 0); Mugwort <0.10 kU/L (Class 0); Mulberry, White <0.10 kU/L (Class 0); Nettle <0.10 kU/L (Class 0); Oak, White <0.10 kU/L (Class 0); Penicillium chrysogen <0.10 kU/L (Class 0); Pigweed, Rough <0.10 kU/L (Class 0); Plantain, English <0.10 kU/L (Class 0); Ragweed, Short/Common <0.10 kU/L (Class 0); Sheep Sorrel(Dock) <0.10 kU/L (Class 0); Stemphylium herbarum <0.10 kU/L (Class 0); Sweet Gum <0.10 kU/L (Class 0); Sycamore, American <0.10 kU/L (Class 0)
== END ==
PROVIDERS: PCP Family Medicine; Visit Provider Family Medicine
DX: T78.40XA Allergy, unspecified, initial encounter (principal)
CPT/HCPCS: 36415; 86003

== ENCOUNTER 2021-01-25 20:00 | Outpatient (CLI) | payer OTHER, SELFPAY ==
[2020-09-20 07:57] VITALS: BMI 31.3
== END 2021-01-25 20:25 | disposition home or self-care (01) ==
LOC: TELEHEALTH 01-26 11:17
PROVIDERS: PCP Family Medicine; Referring Provider Registered Nurse Lactation Consultant; Visit Provider Registered Nurse Lactation Consultant
DX: R63.3 Feeding difficulties (principal)
CPT/HCPCS: 96158

== ENCOUNTER → 2021-04-05 21:15 | Outpatient (CLI) | payer OTHER, SELFPAY | PROVIDERS: PCP Family Medicine; Referring Provider Obstetrics & Gynecology; Visit Provider Obstetrics & Gynecology | DX: R63.3 Feeding difficulties (principal) | CPT/HCPCS: 96158; 96159 ==

== ENCOUNTER → 2024-02-10 | Outpatient (CLI) | payer OTHER, SELFPAY ==
[2024-02-10 18:32] LABS: Anion Gap 9 (5-15); BUN 10 mg/dL (7-18); BUN/Creat Ratio 17.1 RATIO (10-20); Chloride 107 mmol/L (98-107); Cholesterol 186 mg/dL (200); Creatinine, Serum 0.58 mg/dL (0.55-1.02); EST Glomerular Filtration Rate 125 mL/min (>60); Est Glom Filt Rate - Afr Amer 151 mL/min (>60); Glucose 82 mg/dL (74-106); High Density Lipoprotein 56 mg/dL; Potassium 3.7 mmol/L (3.5-5.1); Sodium Level 138 mmol/L (136-145); Thyroid Stim Hormone (TSH) 1.63 uIU/mL (0.358-3.74); Triglycerides 142 mg/dL; Very Low Density Lipoprotein 28 mg/dL (5-40)
== END | disposition home or self-care (01) ==
LOC: MFPLAB 13:53
PROVIDERS: PCP Family Medicine; Visit Provider Family Medicine
DX: Z00.00 Encounter for general adult medical examination without abnormal findings (principal)
CPT/HCPCS: 36415; 80048; 80061; 84443

== ENCOUNTER → 2025-02-18 | Outpatient (CLI) | payer BC, SELFPAY ==
[2025-02-18 18:31] LABS: Anion Gap 14 (5-15); BUN 7 mg/dL (4-19); BUN/Creat Ratio 13.2 RATIO (10-20); Calcium,Total 9.3 mg/dL (7.6-11.0); Carbon Dioxide 20.5 mmol/L (21.0-32.0); Chloride 104 mmol/L (98-108); Cholesterol 194 mg/dL (<=200); Glucose 90 mg/dL (70-99); Low Density Lipoprotein Calc. 109 mg/dL; Potassium 3.9 mmol/L (3.3-5.1); Triglycerides 156 mg/dL; Very Low Density Lipoprotein 31 mg/dL (5-40); cholesterol:hdl ratio screen 3.60
== END | disposition home or self-care (01) ==
LOC: MFPLAB 16:43
PROVIDERS: PCP Family Medicine; Visit Provider Family Medicine
DX: Z00.00 Encounter for general adult medical examination without abnormal findings (principal)
CPT/HCPCS: 36415; 80048; 80061